=== PATIENT | female | born 1985 | race Caucasian/White ===

== ENCOUNTER → 2017-06-28 | Outpatient (CLI) | payer SELFPAY ==
--- NOTE | 2017-06-30 02:40 | RAD ---
History: Syncope. Chest x-ray: PA and lateral views are obtained. A prior study is not available. Contour of the heart and mediastinum is normal. No significant infiltrate or effusion. Mild rotation thoracolumbar spine. No bony abnormality. Bilateral breast implants. IMPRESSION: No active process in the chest. Electronically signed by: Gerri Preston MD 06/29/2017 8:58 AM CDT Workstation: [facility]
--- NOTE | 2017-06-30 03:18 | RAD ---
History: Syncope. Chest x-ray: PA and lateral views are obtained. A prior study is not available. Contour of the heart and mediastinum is normal. No significant infiltrate or effusion. Mild rotation thoracolumbar spine. No bony abnormality. Bilateral breast implants. IMPRESSION: No active process in the chest. Electronically signed by: Gerri Preston MD 06/29/2017 8:58 AM CDT Workstation: [facility] [place]
== END ==
LOC: RESP 16:07
PROVIDERS: ATTEND Nurse Practitioner Family
DX: R55 Syncope and collapse (principal)

== ENCOUNTER → 2017-06-28 | Outpatient (CLI) | payer OTHER | LOC: LAB.O 15:57 | PROVIDERS: ATTEND Nurse Practitioner Family | DX: R55 Syncope and collapse (principal) ==